=== PATIENT | female | born 1960 | race African-American/Black ===

== ENCOUNTER → 2016-11-18 | Outpatient (CLI) | payer BC ==
--- NOTE | 2016-11-18 16:57 | US ---
HISTORY: Screening Study: Transvaginal pelvic sonography Comparison: None Technique: Multiple grayscale sonographic images were obtained. Findings: The uterus measured 4.7 x 2.6 x 3.5 centimeters. Endometrial thickness was normal at 11 millimeters. The right ovary measured 2.5 x 2 x 1.9 centimeters and appeared normal. The left ovary was not visual ized. No adnexal masses are identified. No free fluid is noted in the cul de sac. IMPRESSION: No significant abnormality identified, however, the left ovary was not visualized. Reported By:
--- NOTE | 2016-11-18 18:07 | MG ---
Examination: Bilateral screening mammogram. Clinical history: Routine screening. History of bilateral benign excisional biopsies. Technique: Digital CC and MLO views of both breasts were obtained. Computer aided detection analysis was performed and used during the interpretation. Comparison: 09/12/2015. Findings: The breasts are composed of scattered fibroglandular densities. No suspicious mass, area of architectural distortion or suspicious cluster of microcalcifications is noted. Impression: 1. No mammographic evidence of malignancy. BI-RADS category 1-negative. Recommend routine annual screening mammogram. Diagnostic CAD was utilized and reviewed. * 0 (ZERO) - ASSESSMENT INCOMPLETE; ADDITIONAL IMAGING IS NEEDED. * 0C - ASSESSMENT INCOMPLETE, NEEDS ADDITIONAL IMAGING EVALUATION AND/OR PRIOR MAMMOGRAMS FOR COMPARI SON. * 1/1 (ONE) - NEGATIVE. * 2/II (TWO) - BENIGN FINDINGS. * 3/III (THREE) - PROBABLY BENIGN FINDING; SHORT INTERVAL FOLLOW-UP SUGGESTED. * 4/IV (FOUR) - SUSPICIOUS ABNORMALITY; BIOPSY SHOULD BE CONSIDERED. * 5/V - HIGHLY SUSPICIOUS OF MALIGNANCY; BIOPSY SHOULD BE PERFORMED. * 6/ - KNOWN BIOPSY PROVEN MALIGNANCY-APPROPRIATE ACTION SHOULD BE TAKEN. A NEGATIVE X-RAY REPORT SHOULD NOT DELAY BIOPSY IF A DOMINANT OR CLINICALLY SUSPICIOUS MASS IS PRESENT; 4 TO 8 PERCENT OF CANCERS ARE NOT IDENTIFIED BY X-RAY. A NEGATIVE REPORT MAY REINFORCE THE CLINICAL IMPRESSION. ADENOSIS AND DENSE BREASTS MAY OBSCURE AN UNDERLYING NEOPLASM. Reported By:
== END ==
LOC: RAD 10:01
PROVIDERS: ATTEND Family Medicine
DX: Z12.31 Encounter for screening mammogram for malignant neoplasm of breast (principal); Z01.419 Encounter for gynecological examination (general) (routine) without abnormal findings
CPT/HCPCS: 76830; 77067

== ENCOUNTER 2024-10-16 06:27 | Observation (INO) ==
[2024-10-16] MEDS: FENTANYL VIAL INJ 100 mcg ONE ×2 (06:43→07:44)
[2024-10-16] MEDS: VERSED ONE (06:43)
[2024-10-16] MEDS: ZEMURON 100 MG VIAL ONE (06:44)
[2024-10-16] MEDS: OFIRMEV IV 1000 MG VIAL 1,000 MG/100 ML VIAL IV ONE (06:44)
[2024-10-16] MEDS: ZOFRAN INJ 4 MG VIAL ONE (06:44)
[2024-10-16] MEDS: BRIDION ONE (06:44)
[2024-10-16] MEDS: DIPRIVAN VIAL 20 ML ONE (06:44)
[2024-10-16] MEDS: TORADOL 30 MG VIAL ONE (06:44)
[2024-10-16] MEDS: LR 1,000 ML IV 800 ML IV PRN (06:50)
[2024-10-16] MEDS: PEPCID 20 MG VIAL ONE (06:52)
[2024-10-16] MEDS: ProvayBLUE 0.5% ONE (06:54)
[2024-10-16] MEDS: PEPCID 20 MG VIAL IVP PRN (07:00)
[2024-10-16] MEDS: ZOFRAN INJ 4 MG VIAL IVP PRN (07:00)
[2024-10-16] MEDS: NS 100 ML IV 100 ML ONE (07:05)
[2024-10-16] MEDS: ANCEF VIAL 1 GRAM IVP ONE (07:09)
[2024-10-16] MEDS: LR 1,000 ML IV 1,000 ML IV SCH (07:09)
[2024-10-16] MEDS: VERSED IVP PRN (07:15)
[2024-10-16 07:17] VITALS: BMI 32.8
[2024-10-16] MEDS: DIPRIVAN VIAL 170 ML IVP PRN (07:20)
[2024-10-16] MEDS ORDERED: XYLOCAINE 2 % (PLAIN) PRN (07:20)
[2024-10-16] MEDS: ANCEF VIAL 1 GRAM IV PRN (07:20)
[2024-10-16] MEDS ORDERED: XYLOCAINE 2 % (PLAIN) ONE (07:30)
[2024-10-16] MEDS ORDERED: SUPRANE IN ONE (07:30)
[2024-10-16] MEDS ORDERED: BARHEMSYS INJ IVP PRN (07:46)
[2024-10-16] MEDS ORDERED: BENADRYL INJ 50 MG VIAL IVP PRN ×2 (07:46→09:18)
[2024-10-16] MEDS ORDERED: ZOFRAN INJ 4 MG VIAL IVP PRN ×2 (07:46→09:18)
[2024-10-16] MEDS: FENTANYL VIAL INJ 100 mcg IVP PRN (07:49)
[2024-10-16] MEDS: TORADOL 30 MG VIAL IVP PRN (07:59)
[2024-10-16] MEDS: ZEMURON 100 MG VIAL IVP PRN (08:05)
[2024-10-16] MEDS: OFIRMEV IV 1000 MG VIAL 1,000 MG/100 ML VIAL IV PRN (08:06)
[2024-10-16] MEDS: BRIDION IVP PRN (08:36)
[2024-10-16] MEDS: DILAUDID INJ IVP PRN (08:53)
[2024-10-16] MEDS ORDERED: PERCOCET TAB 5/325 MG PO PRN (09:18)
[2024-10-16] MEDS ORDERED: TORADOL 30 MG VIAL IVP PRN (09:18)
[2024-10-16] MEDS: D5 1/2 NS 1,000 ML 1,000 ML IV SCH (09:32)
[2024-10-17] MEDS: PATIENT'S HOME MEDICATION PO SCH (02:23)
[2024-10-17 04:54] LABS: MEAN PLATELET VOLUME 9.9 fL (7.4-11.0); RED CELL DISTRIBUTION WIDTH 14.1 % (11.6-16.5)
[2024-10-17 04:59] LABS: COR NA(FOR HYPERGLY) 144 mmol/L (136-145); CREATININE 0.99 mg/dL (0.55-1.02); eGFR NON BLACK RACES > 60 (>60)
[2024-10-17] MEDS ORDERED: MOTRIN TAB 800 MG PO PRN (07:11)
[2024-10-17 08:20] VITALS: BP 129/61; PULSE 66; RESP 20; TEMP 98.8; O2SAT 100
[2024-10-17] MEDS: MOBIC TAB 15 MG PO SCH (08:45)
[2024-10-17] MEDS: BACTROBAN TOPICAL OINT TOP SCH (08:45)
[2024-10-17] MEDS: COLACE CAP 100 MG PO SCH (08:45)
[2024-10-17] MEDS: CELEXA PO SCH (08:45)
== END 2024-10-17 11:25 | disposition home or self-care (01) ==
LOC: SURG1 06:27 → MED/SURG 06:27
PROVIDERS: ADMIT Specialist; ATTEND Specialist